=== PATIENT | female | born 1965 | race African-American/Black ===

== ENCOUNTER 2018-05-25 23:43 | Inpatient (IN) | payer MEDICAID ==
[~2018-05-25] VITALS: Ht 160 cm; Wt 89.8 kg
[2018-05-26] VITALS (11 sets, daily range): BP systolic 99–136; BP diastolic 59–91
[2018-05-26 00:26] LABS: BASOPHILS % 0.4 % (0.0-2.0); EOSINOPHILS % 3.5 % (0.0-5.0); HEMOGLOBIN. 13.4 g/dL (12.0-16.0); LYMPHOCYTES % 31.6 % (20.0-50.0); MEAN CORPUSCULAR HEMOGLOBIN 31.8 pg (28.0-32.0); MEAN CORPUSCULAR VOLUME 92.4 fL (81.0-99.0); MEAN PLATELET VOLUME 6.8 fl (7.4-10.4); MONOCYTES % 10.2 % (2.0-8.0); NEUTROPHILS % 54.3 % (40.0-76.0); PLATELET 297 x1000/uL (130-400); RED BLOOD CELL COUNT 4.22 mill/uL (4.2-5.4); RED CELL DISTRIBUTION WIDTH 12.8 % (11.6-14.6)
[2018-05-26 00:29] LABS: CHLORIDE 102 mEq/L (98-107)
[2018-05-26 00:34] LABS: ETHANOL BLOOD 143 mg/dL
[2018-05-26 00:36] LABS: LDL CHOLESTEROL 102 mg/dL (5-100)
[2018-05-26] MEDS ORDERED: SODIUM CHLORIDE 0.9% 1,000 ML IV ONE (01:14)
[2018-05-26] MEDS ORDERED: ASPIRIN 325MG TABLET PO ONE (01:15)
[2018-05-26 01:21] LABS: CLARITY URINE CLEAR (CLEAR); COLOR URINE YELLOW (YELLOW); KETONES URINE NEGATIVE (NEGATIVE); LEUKOCYTE ESTERASE URINE NEGATIVE (NEGATIVE); NITRITE URINE NEGATIVE (NEGATIVE); OCCULT BLOOD URINE NEGATIVE (NEGATIVE); PROTEIN URINE NEGATIVE (NEGATIVE); SPECIFIC GRAVITY URINE 1.002 (1.005-1.030); UROBILINOGEN URINE 0.2 E.U./dL (0.2-1.0)
[2018-05-26 01:31] LABS: *AMPHETAMINES SCREEN URINE NEGATIVE (NEGATIVE); *BARBITURATES SCREEN URINE NEGATIVE (NEGATIVE); *BENZODIAZEPINES SCREEN URINE NEGATIVE (NEGATIVE); *COCAINE SCREEN URINE NEGATIVE (NEGATIVE); METHADONE URINE SCREEN NEGATIVE (NEGATIVE); OPIATES URINE SCREEN NEGATIVE (NEGATIVE)
[2018-05-26 01:32] LABS: CANNABINOID URINE SCREEN NEGATIVE (NEGATIVE); PHENCYCLIDINE URINE SCREEN NEGATIVE (NEGATIVE)
[2018-05-26] MEDS ORDERED: POTASSIUM CHLORIDE 20MEQ TABLET SR PO NR (01:45)
[2018-05-26] MEDS ORDERED: NA PHOS,M-B/NA PHOS,DI-BA ENEMA 118ML PR PRN (06:30)
[2018-05-26] MEDS ORDERED: HYDROCODONE/ACETAMINOPHEN 5/325MG TABLET PO PRN (06:30)
[2018-05-26] MEDS ORDERED: IPRATROPIUM/ALBUTEROL 0.5-3(2.5)MG/3ML NEB INH PRN (06:30)
[2018-05-26] MEDS ORDERED: MAGNESIUM/ALUMINUM HYDROXIDE/SIMETHICONE 30ML UDC PO PRN (06:30)
[2018-05-26] MEDS ORDERED: DOCUSATE SODIUM 100MG CAPSULE PO PRN (06:30)
[2018-05-26] MEDS ORDERED: DIPHENHYDRAMINE 50MG/ML VIAL IV PRN (06:30)
[2018-05-26] MEDS ORDERED: ACETAMINOPHEN 325MG TABLET PO PRN (06:30)
[2018-05-26] MEDS ORDERED: CLONIDINE 0.1MG TABLET PO PRN (06:30)
[2018-05-26] MEDS ORDERED: ONDANSETRON HCL 4MG/2ML INJ IV PRN (06:30)
[2018-05-26] MEDS ORDERED: GUAIFENESIN 200MG/10ML SUGAR FREE UDC PO PRN (06:30)
[2018-05-26] MEDS ORDERED: HYDROMORPHONE HCL/PF 2MG/ML CPJ IV PRN (06:30)
[2018-05-26] MEDS ORDERED: LORAZEPAM 2MG/ML CPJ IV PRN (06:30)
[2018-05-26] MEDS: ASPIRIN 81MG EC TABLET PO SCH (10:27)
[2018-05-26] MEDS: DEXT 5%/0.45% NACL KCL 10MEQ/L 1,000 ML IV SCH ×2 (10:28→20:20)
[2018-05-26] MEDS: ENOXAPARIN 40MG/0.4ML SYR SUBCUT SCH (10:28)
[2018-05-26 11:11] LABS: CHLORIDE 108 mEq/L (98-107)
[2018-05-27] VITALS (12 sets, daily range): BP systolic 97–149; BP diastolic 54–99
[2018-05-27 06:35] LABS: BASOPHILS % 1.1 % (0.0-2.0); EOSINOPHILS % 4.4 % (0.0-5.0); HEMATOCRIT. 37.1 % (36.0-48.0); HEMOGLOBIN. 12.6 g/dL (12.0-16.0); LYMPHOCYTES % 36.8 % (20.0-50.0); MEAN CORPUSCULAR HEMOGLOBIN 32.1 pg (28.0-32.0); MEAN CORPUSCULAR VOLUME 94.3 fL (81.0-99.0); NEUTROPHILS % 47.7 % (40.0-76.0); PLATELET 274 x1000/uL (130-400); RED BLOOD CELL COUNT 3.93 mill/uL (4.2-5.4); RED CELL DISTRIBUTION WIDTH 13.1 % (11.6-14.6)
[2018-05-27 06:41] LABS: CHLORIDE 109 mEq/L (98-107)
[2018-05-27 06:52] LABS: LDL CHOLESTEROL 90 mg/dL (5-100); T4 FREE 0.91 ng/dL (0.76-1.46)
[2018-05-27 06:54] LABS: HDL CHOLESTEROL 32 mg/dL (40-59)
[2018-05-27] MEDS: ASPIRIN 81MG EC TABLET PO SCH (09:12)
[2018-05-27] MEDS: ENOXAPARIN 40MG/0.4ML SYR SUBCUT SCH (09:13)
[2018-05-27] MEDS: DEXT 5%/0.45% NACL KCL 10MEQ/L 1,000 ML IV SCH ×2 (10:23→23:00)
[2018-05-27] MEDS ORDERED: HYDR-2510 MT (11:11)
[2018-05-27] MEDS ORDERED: LISI40TA4 MT (11:11)
[2018-05-27] MEDS: HYDROCHLOROTHIAZIDE 25MG TABLET PO SCH (15:00)
[2018-05-27] MEDS: LISINOPRIL 20MG TABLET PO SCH (15:00)
[2018-05-28] VITALS (12 sets, daily range): BP systolic 101–146; BP diastolic 60–95
[2018-05-28] MEDS: HYDROCHLOROTHIAZIDE 25MG TABLET PO SCH (10:24)
[2018-05-28] MEDS: ASPIRIN 81MG EC TABLET PO SCH (10:24)
[2018-05-28] MEDS: ENOXAPARIN 40MG/0.4ML SYR SUBCUT SCH (10:25)
[2018-05-28] MEDS: LISINOPRIL 20MG TABLET PO SCH (10:42)
[2018-05-28] MEDS: DEXT 5%/0.45% NACL KCL 10MEQ/L 1,000 ML IV SCH (13:09)
== END 2018-05-28 18:55 | disposition home or self-care (01) | DRG 47 ==
LOC: ER 23:43 → 5EST 05-26 02:02 → EDBEDREQTM 05-26 02:10 → EDBEDREQ 05-26 02:10 → ENRESERV 05-26 02:40
PROVIDERS: ADMIT Internal Medicine; ATTEND Internal Medicine
DX: G45.9 Transient cerebral ischemic attack, unspecified (principal); G93.41 Metabolic encephalopathy; E87.8 Other disorders of electrolyte and fluid balance, not elsewhere classified; E86.0 Dehydration; G96.0 Cerebrospinal fluid leak; F10.229 Alcohol dependence with intoxication, unspecified; E87.6 Hypokalemia; F17.210 Nicotine dependence, cigarettes, uncomplicated; I10 Essential (primary) hypertension; Z82.49 Family history of ischemic heart disease and other diseases of the circulatory system; I51.7 Cardiomegaly
CPT/HCPCS: 36415; 70551; 71045; 80048; 80061; 80305; 83721; 83735; 84439; 84443; 84484; 92610; 93005; 93306; 93880; 96360; 97116; 97161; 97165; 99291; G0482; J1650; J2060; J7030